=== PATIENT | female | born 1995 | race Caucasian/White ===

== ENCOUNTER 2023-08-24 09:26 | Inpatient (IN) | payer BC ==
[2023-08-24] VITALS (35 sets, daily range): BP systolic 110–180; BP diastolic 55–85
[~2023-08-24] VITALS: Ht 170.2 cm; Wt 99.7 kg
[2023-08-24] MEDS ORDERED: FAMO10 (12:02)
[2023-08-24] MEDS ORDERED: PRENATAL 19 TA1 EAC3 (12:02)
[2023-08-24] MEDS ORDERED: ERGO400 (12:02)
[2023-08-24 12:07] LABS: BASOPHILS ABSOLUTE AUTO 0.03 K/mm3 (0.00-0.23); BASOPHILS PERCENT AUTO 0 % (0-2); EOSINOPHILS ABSOLUTE AUTO 0.02 K/mm3 (0.00-0.68); EOSINOPHILS PERCENT AUTO 0 % (0-6); Hematocrit 43.4 % (33.0-51.0); Hemoglobin 15.2 g/dL (11.5-16.0); IMMATURE GRAN ABSOLUTE AUTO 0.04 K/mm3 (0.00-0.10); IMMATURE GRAN PERCENT AUTO 0 % (0-1); LYMPHOCYTES ABSOLUTE AUTO 2.34 K/mm3 (0.84-5.20); LYMPHOCYTES PERCENT AUTO 19 % (21-46); MONOCYTES ABSOLUTE AUTO 0.57 K/mm3 (0.16-1.47); MONOCYTES PERCENT AUTO 5 % (4-13); Mean Corpuscular HGB 33.6 pg (26.0-34.0); Mean Corpuscular Volume 96 fL (80-100); Mean Platelet Volume 11.2 fL (9.1-12.4); NEUTROPHILS ABSOLUTE AUTO 9.38 K/mm3 (1.96-9.15); NEUTROPHILS PERCENT AUTO 76 % (41-73); Platelet Count 216 K/mm3 (150-400); RDW Coefficient Variation 12.8 % (11.7-14.2); RDW Standard Deviation 44.6 fL (35.1-46.3); Red Blood Cell Count 4.53 M/mm3 (3.80-5.20); White Blood Cell Count 12.38 K/mm3 (4.00-11.30)
[2023-08-25 00:19] VITALS: BP 120/74
[2023-08-25 04:29] VITALS: BP 124/70
[2023-08-25 06:08] LABS: Hematocrit 37.5 % (33.0-51.0); Hemoglobin 13.1 g/dL (11.5-16.0); Mean Corpuscular HGB 33.6 pg (26.0-34.0); Mean Corpuscular HGB Conc 34.9 g/dL (31.5-36.5); Mean Corpuscular Volume 96 fL (80-100); Mean Platelet Volume 11.1 fL (9.1-12.4); Platelet Count 178 K/mm3 (150-400); RDW Coefficient Variation 12.9 % (11.7-14.2); RDW Standard Deviation 45.5 fL (35.1-46.3); White Blood Cell Count 19.89 K/mm3 (4.00-11.30)
[2023-08-25 07:46] VITALS: BP 127/60
[2023-08-25 12:03] VITALS: BP 120/65
[2023-08-25 17:24] VITALS: BP 113/67
== END 2023-08-25 18:30 | disposition home or self-care (01) | DRG 806 ==
LOC: BC 09:26 → OBS 09:26 → BC 09:28 → OBS 11:31 → BC 11:32
PROVIDERS: ADMIT Advanced Practice Midwife
PROC: 10E0XZZ Delivery of Products of Conception, External Approach (ICD-10-PCS; principal; 2023-08-24)
PROC: 3E0R3BZ Introduction of Anesthetic Agent into Spinal Canal, Percutaneous Approach (ICD-10-PCS; 2023-08-24)
PROC: 00HU33Z Insertion of Infusion Device into Spinal Canal, Percutaneous Approach (ICD-10-PCS; 2023-08-24)
PROC: 0HQ9XZZ Repair Perineum Skin, External Approach (ICD-10-PCS; 2023-08-24)
DX: O24.420 Gestational diabetes mellitus in childbirth, diet controlled (principal); O72.1 Other immediate postpartum hemorrhage; Z37.0 Single live birth; Z3A.39 39 weeks gestation of pregnancy; O70.0 First degree perineal laceration during delivery
CPT/HCPCS: 36415; 51702; 59025; 81003; 82947; 85025; 85027; 86850; 86900; 86901; 87210; A9270; J1885; J2210; J2590; J3010; J7120

== ENCOUNTER 2025-06-26 23:54 | Inpatient (IN) | payer BC ==
[~2025-06-26] VITALS: Ht 170.2 cm; Wt 84.1 kg
[~2025-06-26 23:54] MED LIST: ERGO400; FAMO10; PRENATAL 19 TA1 EAC3
[2025-06-27] VITALS (36 sets, daily range): BP systolic 82–127; BP diastolic 46–79
[2025-06-27] MEDS ORDERED: Carboprost Tromethamine 250 MCG/ML 1ML Amp IM PRN (00:30)
[2025-06-27] MEDS ORDERED: Oxytocin 10 Unit / ML Vial IM PRN (00:30)
[2025-06-27] MEDS ORDERED: FentaNYL Citrate 50 MCG/ML 2 ML Injection IV PRN (00:30)
[2025-06-27] MEDS ORDERED: ePHEDrine Sulfate 50 MG/ML 1ML Injection XX PRN (00:30)
[2025-06-27] MEDS ORDERED: OXYTOCIN/RINGER'S LACTATE 500 ML IV PRN (00:30)
[2025-06-27] MEDS ORDERED: Tranexamic Acid 100 ML IV PRN (00:30)
[2025-06-27] MEDS ORDERED: Ondansetron HCl 2 MG / ML 2ML Vial IV PRN ×2 (00:30→04:30)
[2025-06-27] MEDS ORDERED: Methylergonovine Maleate 0.2MG / ML 1ML Amp IM PRN ×2 (00:30→07:10)
[2025-06-27] MEDS ORDERED: FentaNYL 2mcg/ml-Bup 0.1% Epd 250 ML EPI PRN (00:30)
[2025-06-27] MEDS ORDERED: Penicillin G Potassium 5,000,000 UNITS in NS 250 ML IV ONE (00:30)
[2025-06-27] MEDS ORDERED: MAGCIT300 PO (00:37)
[2025-06-27] MEDS ORDERED: FISH OIL 1,0001 EA10 PO (00:38)
[2025-06-27 00:56] LABS: BASOPHILS ABSOLUTE AUTO 0.05 K/mm3 (0.00-0.23); BASOPHILS PERCENT AUTO 0 % (0-2); EOSINOPHILS ABSOLUTE AUTO 0.20 K/mm3 (0.00-0.68); EOSINOPHILS PERCENT AUTO 1 % (0-6); Hematocrit 39.8 % (33.0-51.0); Hemoglobin 13.8 g/dL (11.5-16.0); IMMATURE GRAN ABSOLUTE AUTO 0.08 K/mm3 (0.00-0.10); IMMATURE GRAN PERCENT AUTO 1 % (0-1); LYMPHOCYTES ABSOLUTE AUTO 2.39 K/mm3 (0.84-5.20); LYMPHOCYTES PERCENT AUTO 17 % (21-46); MONOCYTES ABSOLUTE AUTO 0.83 K/mm3 (0.16-1.47); MONOCYTES PERCENT AUTO 6 % (4-13); Mean Corpuscular HGB Conc 34.7 g/dL (31.5-36.5); Mean Corpuscular Volume 99 fL (80-100); NEUTROPHILS ABSOLUTE AUTO 10.46 K/mm3 (1.96-9.15); NEUTROPHILS PERCENT AUTO 75 % (41-73); NRBC ABSOLUTE 0.00 K/mm3 (0.00-0.02); NRBC Auto 0.0 /100 WBC (0.0-0.2); Platelet Count 235 K/mm3 (150-400); RDW Coefficient Variation 12.9 % (11.7-14.2); RDW Standard Deviation 46.5 fL (35.1-46.3)
[2025-06-27] MEDS ORDERED: Naloxone HCl 0.4MG / ML 1ML Vial IV PRN (04:30)
[2025-06-27] MEDS ORDERED: DiphenhydrAMINE HCl 50 MG/ML 1ML Vial IV PRN (04:30)
[2025-06-27] MEDS ORDERED: ePHEDrine Sulfate 50 MG/ML 1ML Injection IV PRN (04:35)
[2025-06-27] MEDS ORDERED: Metoclopramide HCl 5MG / ML 2ML Vial IV PRN (04:35)
[2025-06-27] MEDS ORDERED: Penicillin G Potassium 2,500,000 UNITS in Dextrose 5% 100 ML IV SCH (05:00)
[2025-06-27] MEDS ORDERED: OXYTOCIN/RINGER'S LACTATE 500 ML IV SCH ×2 (05:15→07:15)
[2025-06-27] MEDS ORDERED: Benzocaine Topical Anesthetic Spray 60GM TOP PRN (07:10)
[2025-06-27] MEDS ORDERED: Ketorolac Tromethamine 30mg Vial IV PRN (07:10)
[2025-06-27] MEDS ORDERED: FLU VACC TS2025-26(6MOS UP)/PF 45 MCG/0.5 ML SYRINGE IM SCH (07:15)
[2025-06-27] MEDS ORDERED: OxyCODONE 5 mg/Acetamin 325 mg TABLET PO PRN (07:15)
[2025-06-27] MEDS ORDERED: Witch Hazel/Glycerin PADS TOP PRN (07:15)
[2025-06-27] MEDS ORDERED: Prenatal Vit/FE Fumarate/FA 1 Tab PO SCH (09:00)
[2025-06-28 06:12] VITALS: BP 121/70
[2025-06-28 07:26] VITALS: BP 109/64
[2025-06-28 08:44] LABS: Hematocrit 38.0 % (33.0-51.0); Hemoglobin 12.8 g/dL (11.5-16.0); Mean Corpuscular HGB Conc 33.7 g/dL (31.5-36.5); Mean Corpuscular Volume 101 fL (80-100); NRBC ABSOLUTE 0.00 K/mm3 (0.00-0.02); NRBC Auto 0.0 /100 WBC (0.0-0.2); Platelet Count 185 K/mm3 (150-400); RDW Coefficient Variation 13.2 % (11.7-14.2); RDW Standard Deviation 49.5 fL (35.1-46.3)
--- NOTE | 2025-06-28 10:07 | NUR ---
Upon receiving and referral for spiritual care, I visited the patient. Her SO, Amadeo, is present. We discuss the successful of [place] and that they will DC home today. I provided a prayer blessing for for [place] and the family. The patient and Amadeo voice their appreciation.
[2025-06-29 09:27] LABS: HEPATITIS C AB CIA INTERP Negative (Negative); HEPATITIS C ANTIBODY CIA INDEX <0.02 IV
== END 2025-06-28 10:36 | disposition home or self-care (01) | DRG 807 ==
LOC: OBS 23:54 → BC 23:59 → OBS 06-27 00:24 → BC 06-27 00:25
PROVIDERS: ADMIT Advanced Practice Midwife
PROC: 10E0XZZ Delivery of Products of Conception, External Approach (ICD-10-PCS; principal; 2025-06-27)
DX: O48.0 Post-term pregnancy (principal); Z37.0 Single live birth; Z3A.41 41 weeks gestation of pregnancy; O99.824 Streptococcus B carrier state complicating childbirth
CPT/HCPCS: 36415; 51702; 85025; 85027; 86803; 86850; 86900; 86901; 86923; 99214; A9270; J1885; J2540; J2590; J7050; J7120